=== PATIENT | female | born 1955 | race Caucasian/White ===

== ENCOUNTER 2017-10-03 14:53 | Observation (INO) | payer OTHER, SELFPAY ==
[2017-09-11 12:26] VITALS: BMI 33.3
[2017-10-02] VITALS (13 sets, daily range): BP systolic 114–170; BP diastolic 46–90; PULSE 60–95; RESP 12–18; TEMP 35.8–37.2; O2SAT 93–98; BMI 33.3
[2017-10-02] MEDS: LACTATED RINGERS 1,000 ML 42 ML IV ×2 (09:52→12:52)
--- NOTE | 2017-10-02 10:13 | PM.PREOP ---
Pre-operative Note Interval Note Pre-op Check: History & Physical Reviewed by Physician and Changes
[2017-10-02] MEDS: ACETAMINOPHEN 325 MG TABLET 975 MG PO (10:26)
[2017-10-02] MEDS: CELECOXIB 200 MG CAPSULE PO (10:26)
[2017-10-02] MEDS: CEFAZOLIN 2 GM/100 ML FROZ.PIGGY IV ×2 (10:51→18:43)
--- NOTE | 2017-10-02 11:06 | SUR.OPER ---
Supine on padded OR bed. Pillow under head, arms secured on padded armboards <90 degree abduction. Safety belt across torso. Non-operative leg secured with tape over blanket over lower leg. Operative leg secured in DeMayo/Lasha positioner. Foam padded brace at thigh of operative leg.
[2017-10-02] MEDS: BUPIVACAINE LIPOSOME 266 MG/20 ML VIAL SUBCUT (11:12)
[2017-10-02] MEDS: BUPIVACAINE 0.25% W/ EPI 50 ML VIAL INJ (11:12)
[2017-10-02] MEDS: MORPHINE 4 MG/ML INJ INJ (11:13)
--- NOTE | 2017-10-02 12:29 | DI.RAD.S_ITS ---
PROCEDURE: XR KNEE RT 1TO2V INDICATIONS: post op total knee TECHNIQUE: 2 view(s) of the knee acquired. COMPARISON: None. FINDINGS: Bones: Patient is status post knee joint arthroplasty. Hardware components are in expected positions. Visualized bony structures are intact. Soft tissues: Overlying postoperative changes are noted. IMPRESSION: Expected postsurgical change for total right knee arthroplasty. Dictated by: Aiyana Lewis MD, PhD on 10/02/2017 at 13:03 Approved by: Aiyana Lewis MD, PhD on 10/02/2017 at 13:04
--- NOTE | 2017-10-02 12:29 | PM.OP.1 ---
Operative Date/Time/Diagnoses - Date of procedure: 10/02/17 Time of procedure: 12:15 Pre-op diagnosis: Right knee osteoarthritis Post-op diagnosis: same Procedure & Clinicians Procedure: Right total knee replacement Same procedure as scheduled: Yes Indications: The patient has had progressively worsening right knee pain with radiographic changes consistent with arthritis. Non-operative management has failed and the patient has requested total knee replacement. The risks, benefits and alternatives to surgery were discussed with the patient prior to proceeding. Risks discussed included, but were not limited to, failure to relieve pain, stiffness, infection, nerve damage, deep venous thrombosis, pulmonary embolism, stroke, coma, heart attack, permanent paralysis and , as well as the potential need for eventual revision of the prosthetic. Surgeon: Branden Montero Manager Private: Gina Andrade Click Yes if Unassisted: No Anesthesia Type: General, Spinal and Local Operative Notes Findings: Severe tricompartmental osteoarthritis worst in the medial compartment. Closure Type: primary Specimen(s): none sent Implants & Drains: Implants used in this procedure were manufactured by the [employer] and included the BCS II Journey total knee replacement with a size 5 Oxinium femoral component, size 4 non porous tibial base plate, a 10 mm cross-linked BCS II tibial insert and a 32 mm oval Meka II patella. Applied: implant(s) Estimated Blood Loss (mL): 25 Blood products transfused: none Tourniquet time (min): 54 Procedure in detail: The patient was seen in the pre-operative area, where the patient identified the right knee as the operative site and this was marked with my initials. The patient received pre-operative antibiotics, and was taken to the operating room and placed on the operative table in the supine position. After satisfactory anesthesia, a realtime court reporter out was performed. The right leg was encircled with a tourniquet about the proximal thigh, and the leg was prepared from the toes to the tourniquet with ChloroPrep in the usual fashion and draped through sterile drapes. The leg was elevated and exsanguinated with Eschmark bandage and the tourniquet inflated to 250 mmHg pressure. The knee was approached through an approximately 18 cm incision centered over the patella and carried into the knee through a medial parapatellar arthrotomy. The anterior osteophytes and soft tissues were removed. The rotational landmarks of Baker's line and the transepicondylar axis were marked on the femur with electrocautery, and intramedullary guide holes for the femur and tibia were created. The distal femoral cut was made in 6 degrees of valgus using the intramedullary guide at the primary cut setting. The proximal tibial cut was then made using the intramedullary guide, taking 9 mm of bone off the less involved side. The extension gap was checked and the rotation of the femoral component confirmed with the gap balancing system. The anterior, posterior and chamfer cuts were then made. The posterior osteophytes and soft tissues were then removed. The posterior capsule was injected with part of a mixture of 50 ml 0.25% Marcaine mixed with 20 ml Exparel and 4 mg of morphine for post-operative pain control. The remainder of this mixture was injected into the capsule and subcutaneous tissues during cement curing. The tibia was prepared with the rotation set by an extra medullary guide. Trial tibial and femoral components were then placed and the intercondylar notch cut through the femoral trial. Range of motion was 0-135 degrees, with good stability throughout the range. The patella was then cut to accommodate the patellar prosthetic. There was no need for a lateral release. The trials were then removed, and the femoral hole plugged with a bone plug. The bone was prepared with pulsatile lavage, and dried with a sponge. Cement was applied and the final prosthetics placed. Excess cement was removed during and after cement curing. After confirming there was no extruded cement posteriorly, the final tibial insert was placed. The knee was copiously irrigated and the tourniquet deflated. Hemostasis was obtained. The capsule was closed with interrupted # 2 polyester suture. The subcutaneous layer was closed with 3-0 Vicryl, and the skin with a running 3-0 V-Lock suture and SteriStrips. An Aquacel Ag dressing was applied and the patient was taken to recovery having tolerated the procedure well. Complications: none Condition: stable Disposition: PACU Plan for aftercare: The patient will be maintained on a standard total knee replacement protocol with weight bearing as tolerated. The patient will receive aspirin and sequential compression devices for DVT prophylaxis. The patient will be discharged home when safe for the home environment.
[2017-10-02] MEDS: LACTATED RINGERS 1,000 ML 125 ML IV (13:53)
[2017-10-02] MEDS: HYDROCODONE/ACET 5/325 TABLET 1 TAB PO (13:55)
[2017-10-02] MEDS: hydrOXYzine pamoate 25 MG CAPSULE PO (14:39)
[2017-10-02] MEDS: IBUPROFEN 400 MG TABLET PO (15:37)
[2017-10-02] MEDS: OXYCODONE IR 5 MG TABLET PO ×2 (16:19→20:25)
--- NOTE | 2017-10-02 16:46 | PT.IPTN ---
Current Diagnoses Bilateral primary osteoarthritis of knee (10/02/17) Surgery Performed Operation Date: 10/02/17 10:15 Actual Procedures p Total Knee Arthroplasty(Right) - Branden Montero MD Physical Therapy Treatment Note M3 PT-IP Subjective Start: 10/02/17 16:42 Freq: Status: Active Protocol: Document 10/02/17 16:45 AB (Rec: 10/02/17 16:46 AB [id number]) Subjective Physical Therapy Visit Type Type Patient Refusal Notes checked on pt 2x but pt continues to refuse. Pt c/o increase pain on R knee and does not want to do therapy at this time. agreed to be seen tomorrow. PLOF information obtained from pt and post-op folder also given to pt.
[2017-10-02] MEDS: DOCUSATE 100 MG CAPSULE PO (20:20)
[2017-10-02] MEDS: ASPIRIN EC 81 MG TABLET PO (20:20)
[2017-10-02] MEDS: GABAPENTIN 100 MG CAPSULE PO (20:21)
[2017-10-02] MEDS: PRAVASTATIN 20 MG TABLET PO (20:21)
[2017-10-02] MEDS: LISINOPRIL 20 MG TABLET 40 MG PO (20:22)
--- NOTE | 2017-10-02 22:25 | PC.NURSE ---
Pt restign quietly at intervals. Med at 1620 and 2030 for discomfortw/minimal relief. Dsg to right knee CDI. Refusing SCD for the night. IV infusing as per orders w/o [employer]. CBG = 159. Stable post op course. Call light w/in reach, bed alarm on for pt safety. Continue w.plan of care
[2017-10-03] MEDS: OXYCODONE IR 5 MG TABLET PO ×8 (00:10→20:49)
[2017-10-03] MEDS: hydrOXYzine pamoate 25 MG CAPSULE PO (02:14)
[2017-10-03] MEDS: HYDROCODONE/ACET 5/325 TABLET 1 TAB PO (02:15)
[2017-10-03] MEDS: CEFAZOLIN 2 GM/100 ML FROZ.PIGGY IV (02:16)
[2017-10-03 03:34] VITALS: BP 137/75; PULSE 90; RESP 16; TEMP 37.1; O2SAT 92
[2017-10-03 05:00] VITALS: O2SAT 96
[2017-10-03] MEDS: IBUPROFEN 400 MG TABLET PO (05:33)
[2017-10-03 05:57] LABS: Hematocrit 33.2 % (36-46); Hemoglobin 11.3 g/dL (12.0-16.0)
--- NOTE | 2017-10-03 07:32 | P.PN_ITS ---
Subjective Date Patient Seen: 10/03/17 Time Patient Seen: 07:28 Interval history: The patient is seen postoperative day 1 from right total knee replacement. She reports she is having soreness but her pain has not been out of control. Exam Vital Signs (past 8 hours): Vital Signs - 8 hr 3 10/03/17 03:34 10/03/17 05:00 Temperature 98.8 F Pulse Rate 90 Respiratory Rate 16 Blood Pressure 137/75 H Pulse Oximetry 92 96 Pulse Oximetry 96 Oxygen Delivery Method Room Air Oxygen Flow Rate 0 Narrative Exam Narrative: Right knee wound is dressed. There is no drainage on the bandage. Calf is soft. Light touch and motion are intact in the right lower extremity. Objective Labs Result Diagrams: 10/03/17 05:27 Labs: Laboratory Results - last 24 hr 10/03/17 05:27 Hgb 11.3 L Hct 33.2 L Assessment & Plan Post-op Postoperative Procedures Operation Date: 10/02/17 10:15 Actual Procedures Side Surgeon p Total Knee Arthroplasty Right Branden Montero MD Postoperative day: 1 Postoperative status: doing well Postoperative plan: routine post-op care (The patient will be seen by physical therapy today. If she makes sufficient progress she will be discharged later this afternoon. If not she will be maintained in the hospital as an inpatient.) Time Spent With Patient less than 15 minutes Quality VTE Deep Vein Thrombosis/Pulmonary Embolism Present on Admission: No
[2017-10-03 08:08] VITALS: O2SAT 91
[2017-10-03] MEDS: METFORMIN HCL 500 MG TABLET PO (08:30)
[2017-10-03] MEDS: DOCUSATE 100 MG CAPSULE PO ×2 (08:31→20:46)
[2017-10-03] MEDS: AMLODIPINE 5 MG TABLET PO (08:31)
[2017-10-03] MEDS: ASPIRIN EC 81 MG TABLET PO ×2 (08:31→20:46)
[2017-10-03] MEDS: METOPROLOL ER 50 MG TABLET 100 MG PO (08:31)
[2017-10-03] MEDS: GABAPENTIN 100 MG CAPSULE PO ×2 (08:31→20:46)
[2017-10-03 12:20] VITALS: BP 161/85; PULSE 86; RESP 18; TEMP 36.9; O2SAT 95
--- NOTE | 2017-10-03 12:23 | PT.IIE ---
Current Diagnoses Bilateral primary osteoarthritis of knee (10/02/17) Surgery Performed Operation Date: 10/02/17 10:15 Actual Procedures p Total Knee Arthroplasty(Right) - Branden Montero MD Surgical History (Last Updated 09/11/17 @ 13:13 by Heather Juarez RN) History of section (Acute) Hx of meniscectomy of right knee (Acute) S/P trigger finger release (Acute) Medical History (Last Updated 09/11/17 @ 13:13 by Heather Juarez RN) Arthritis (Acute) Ganglion cyst (Acute) HTN (hypertension) (Acute) Hyperlipidemia (Acute) Lower back pain (Acute) Numbness (Acute) Pre-diabetes (Acute) Trigger finger, right ring finger (Acute) Physical Therapy Inpatient Evaluation/Re-Eval M1 PT/OT-IP Prior Functional Status Start: 10/02/17 16:42 Freq: Status: Active Protocol: Document 10/03/17 12:11 AB (Rec: 10/03/17 12:23 AB [id number]) Medical Review Prior Functional Status Medical History Reviewed Yes Mobility and Gait pt stated that she is independent with all mobilities and ambulation without AD Social History Household Members none Living Arrangements House Number of Floors (Floors) One Floor Number of Stairs To Enter/Railing? Pt will stay with her friend that has a one level house with 2 steps to enter with L rail ascending Home Environment High Toilet Walk in Shower Home Equipment Front Wheel Walker Straight Cane M2 PT-IP Current Condition Start: 10/02/17 16:42 Freq: Status: Active Protocol: Document 10/03/17 12:11 AB (Rec: 10/03/17 12:23 AB [id number]) Physical Therapy Current Condition Current Condition Evaluation Date 10/03/17 Treatment Diagnosis s/p R TKA Onset Date 10/02/17 Weight Bearing Status Weight Bearing Status Weight Bear as Tolerated M3 PT-IP Subjective Start: 10/02/17 16:42 Freq: Status: Active Protocol: Document 10/03/17 12:11 AB (Rec: 10/03/17 12:23 AB [id number]) Subjective Physical Therapy Visit Type Type Initial Evaluation Visit Start Time 09:08 Visit Stop Time 09:50 Total Visit Minutes 42 Number of BOTTOM SANDER Visits 0 Physical Therapy Visit Comments Patient Comments pt agreeable to do therapy Therapy Pain Assessment Pain When Pain Assessed At Rest Pain Present Pain Present Pain Reported Location Right Knee Intensity 7 Scale Used Numeric (1 - 10) Pain Behaviors Guarding Restlessness Pain Management Techniques Apply Cold Re-positioning Timing of Activity with Medications M4 PT-IP Mobility and Gait Start: 10/02/17 16:42 Freq: Status: Active Protocol: Document 10/03/17 12:11 AB (Rec: 10/03/17 12:23 AB [id number]) PT-Bed Mobility Assessment Supine to Sit Supine to Sit Standby Assistance PT-Transfer Assessment Sit to and From Stand Sit to and from Stand Maximum Assistance Equipment Transfer Assistive Device Gait Belt Front Wheeled Walker Orthotic/Prosthetic Devices or Brace: No Gait Assessment Gait Gait Assistance Required: Moderate Assistance Distance (Feet) (feet) 20 Able to Maintain Weight Bearing Status Yes During Gait Assistive Devices Assistive Device Gait Belt Front Wheeled Walker Orthotic/Prosthetic Devices or Brace: No Gait Deviations General Gait Pattern Antalgic Decreased Stride Length Decreased Feet Clearance Factors Limiting Gait Function Factors Limiting Gait Function Decreased Activity Tolerance Decreased Strength Limited Range of Motion Pain Poor Balance Poor Safety Awareness Comments Gait Comments pt with slight buckling towards terminal stance on R knee PT-Balance Assessment Sitting Balance and Reactions Static Sitting Balance Ability Good Dynamic Sitting Balance Ability Good Standing Balance and Reactions Static Standing Balance Ability Fair Dynamic Standing Balance Ability Poor Device Used FWW M5 PT-IP Objective Assessments Start: 10/02/17 16:42 Freq: Status: Active Protocol: Document 10/03/17 12:11 AB (Rec: 10/03/17 12:23 AB [id number]) Orientation Orientation/Cognition Level of Alertness Alert Orientation Name Age Place Situation Safety Awareness Decreased Safety Awareness Memory Description Short Term Impaired Gross Range of Motion Lower Extremity ROM Assessment Right Impaired Strength Lower Extremity Strength Assessment Right Impaired Knee 3-/5 M6 PT-IP Treatment Start: 10/02/17 16:42 Freq: Status: Active Protocol: Document 10/03/17 12:11 AB (Rec: 10/03/17 12:23 AB [id number]) Physical Therapy Treatment Education Education Provided Precautions Weight Bearing Status Post-Op Packet Safety Other Treatments Other Treatment Performed pt ambulated towards the toilet using FWW mod A and max cues for quad activation. pt required mod A for controlled descent to commode. Pt completed sit to stand from the toilet mod to max A and cues. M7 PT-IP Assessment and Plan Start: 10/02/17 16:42 Freq: Status: Active Protocol: Document 10/03/17 12:11 AB (Rec: 10/03/17 12:23 AB [id number]) PT Summary Assessment and Plan Potential Rehabilitation Potential Fair Status of Condition at Evaluation Evolving Summary Impairments Pain ROM Strength Balance Cognition Bed Mobility Transfers Gait Activity Tolerance Assessment Summary pt requires mod/max A with mobility and has slight R knee buckling during ambulation. pt plans to go to her friend's house and stated that her friend can assist her. d/c plan depending on progress and assistance pt's friend can provided for her. Will need further assessment but at this time may require SNF rehab. Goals Bed Mobility Goal Standby Assistance Transfer Goal Standby Assistance Gait Goal Standby Assistance Gait Distance 100 Other Goals up/down 2 steps with L rail ascending Days to Meet Goals 3 Frequency of Treatment Frequency Of Treatment Twice a Day Treatment Plan Physical Therapy Treatment Plan Bed Mobility Training Transfer Training Gait Training Therapeutic Exercise Balance Retraining Post Op Education Discharge Planning Hot or Cold Pack Neuromuscular Re-ed Coordination Retraining Manual Therapy Other Recommendations and Next Treatment ambulation, stair climbing Focus Recommendations To Nursing Amount of Assist Needed 1 Person Assist Discharge Recommendations PT Discharge Recommendations Home with Assistance Home Health SNF Rehab Outpatient PT Other Discharge Recommendations SNF vs home with assist/HHPT/ outpt PT : depending on level of assistance Provider Visit Care Team Role Provider Type Branden Montero MD Attending Provider Physician Specialty: Orthopedic Surgery
--- NOTE | 2017-10-03 15:58 | CM.DANOTE ---
DCP Assessment: Pt is a 62 yo female, resident of [place]. Pt initially SDC for a scheduled knee surgery w/ Dr Montero and has been changed to inpt today, 10/03/17. Pt's PCP is not listed, Insurance is [employer]. Reviewed chart. Pt is indp and active at baseline and plans to stay w/a friend for recovery period. According to PT notes; pt moving very slowly and requiring mod to max assist today. PT waiting to assess pt's progression further before determining if rec is SNF vs Home w/HH vs Home w/friend and outpt PT. Following closely and will complete full bedside assessment . LUIGI Fong
[2017-10-03 16:45] VITALS: BP 161/72; PULSE 92; RESP 18; TEMP 36.6; O2SAT 93
--- NOTE | 2017-10-03 17:29 | PT.IPTN ---
Current Diagnoses Bilateral primary osteoarthritis of knee (10/03/17) Surgery Performed Operation Date: 10/02/17 10:15 Actual Procedures p Total Knee Arthroplasty(Right) - Branden Montero MD Physical Therapy Treatment Note M2 PT-IP Current Condition Start: 10/02/17 16:42 Freq: Status: Active Protocol: Document 10/03/17 12:11 AB (Rec: 10/03/17 12:23 AB [id number]) Physical Therapy Current Condition Current Condition Evaluation Date 10/03/17 Treatment Diagnosis s/p R TKA Onset Date 10/02/17 Weight Bearing Status Weight Bearing Status Weight Bear as Tolerated M3 PT-IP Subjective Start: 10/02/17 16:42 Freq: Status: Active Protocol: Document 10/03/17 17:21 AB (Rec: 10/03/17 17:28 AB [id number]) Subjective Physical Therapy Visit Type Type Treatment Note Visit Start Time 14:30 Visit Stop Time 15:05 Total Visit Minutes 35 Number of UNIVERSITY MANAGER Visits 0 Physical Therapy Visit Comments Patient Comments pt agreeable to do therapy Therapy Pain Assessment Pain When Pain Assessed At Rest Pain Present Pain Present Pain Reported Location Right Knee Intensity 5 Scale Used Numeric (1 - 10) Pain Management Techniques Apply Cold Timing of Activity with Medications M4 PT-IP Mobility and Gait Start: 10/02/17 16:42 Freq: Status: Active Protocol: Document 10/03/17 17:21 AB (Rec: 10/03/17 17:28 AB [id number]) PT-Bed Mobility Assessment Supine to Sit Supine to Sit Minimal Assistance PT-Transfer Assessment Sit to and From Stand Sit to and from Stand Minimal Assistance Moderate Assistance Equipment Transfer Assistive Device Gait Belt Front Wheeled Walker Gait Assessment Gait Gait Assistance Required: Minimum Assistance Distance (Feet) (feet) 35 Assistive Devices Assistive Device Gait Belt Front Wheeled Walker Orthotic/Prosthetic Devices or Brace: No Gait Deviations General Gait Pattern Antalgic Decreased Stride Length Decreased Feet Clearance Factors Limiting Gait Function Factors Limiting Gait Function Decreased Activity Tolerance Decreased Strength Limited Range of Motion Pain Poor Balance Poor Safety Awareness Comments Gait Comments pt continues to present with slight R knee buckling during ambulation Stair Climbing Assessment Evaluation Level of Assist On Stairs Maximal Assistance 1 Person Assistance Devices Stair Climbing Assistive Devices Left Railing Right Railing Technique/Endurance Stair Climbing Direction Ascend and Descend Stair Climbing Technique Step to Step Number of Steps Climbed 3 Query Text: Comments Stair Climbing Comments pt requiring max A with up/ down steps with max cue sot activate R quads. pt also seems drowsy affecting following instructions. M5 PT-IP Objective Assessments Start: 10/02/17 16:42 Freq: Status: Active Protocol: Document 10/03/17 12:11 AB (Rec: 10/03/17 12:23 AB [id number]) Orientation Orientation/Cognition Level of Alertness Alert Orientation Name Age Place Situation Safety Awareness Decreased Safety Awareness Memory Description Short Term Impaired Gross Range of Motion Lower Extremity ROM Assessment Right Impaired Strength Lower Extremity Strength Assessment Right Impaired Knee 3-/5 M6 PT-IP Treatment Start: 10/02/17 16:42 Freq: Status: Active Protocol: Document 10/03/17 17:28 AB (Rec: 10/03/17 17:29 AB [id number]) Physical Therapy Treatment Exercises Exercises Quad Sets Other Treatments Other Treatment Performed pt completed R quads sets and instructed to do exercises independently to strengthen R quads. M7 PT-IP Assessment and Plan Start: 10/02/17 16:42 Freq: Status: Active Protocol: Document 10/03/17 17:21 AB (Rec: 10/03/17 17:28 AB [id number]) PT Summary Assessment and Plan Potential Rehabilitation Potential Fair Summary Impairments Pain ROM Strength Balance Sensation Cognition Bed Mobility Transfers Gait Activity Tolerance Progress Towards Goals Slow Progress due to Activity Tolerance Assessment Summary pt continues to require mod for transfer and max A with stair climbing. d/c plan depending if pt's friend will be able to assist pt safely. informed pt that caregiver training needs to be conducted but also informed regarding SNF possibility. pt has 3 steps to enter the house with one rail. At this time, pt needs 2 rails and requires max A for safety. Goals Bed Mobility Goal Standby Assistance Transfer Goal Standby Assistance Gait Goal Standby Assistance Gait Distance 100 Other Goals up/down 2 steps with L rail ascending Days to Meet Goals 3 Frequency of Treatment Frequency Of Treatment Twice a Day Treatment Plan Physical Therapy Treatment Plan Bed Mobility Training Transfer Training Gait Training Therapeutic Exercise Balance Retraining Post Op Education Discharge Planning Hot or Cold Pack Neuromuscular Re-ed Coordination Retraining Manual Therapy Other Recommendations and Next Treatment ambulation, stair climbing Focus Recommendations To Nursing Amount of Assist Needed 1 Person Assist Discharge Recommendations PT Discharge Recommendations Home with Assistance Home Health SNF Rehab Outpatient PT Other Discharge Recommendations SNF vs home with assist/HHPT/ outpt PT : depending on level of assistance
[2017-10-03 20:02] VITALS: BP 157/79; PULSE 98; RESP 20; TEMP 37.3; O2SAT 93
[2017-10-03] MEDS: PRAVASTATIN 20 MG TABLET PO (20:47)
[2017-10-03] MEDS: LISINOPRIL 20 MG TABLET 40 MG PO (20:47)
[2017-10-04] VITALS (8 sets, daily range): BP systolic 127–164; BP diastolic 67–99; PULSE 88–116; RESP 13–20; TEMP 36.3–37.4; O2SAT 93–98
[2017-10-04] MEDS: IBUPROFEN 400 MG TABLET PO ×3 (00:08→21:12)
--- NOTE | 2017-10-04 07:16 | P.PN_ITS ---
Subjective Date Patient Seen: 10/04/17 Time Patient Seen: 07:14 Interval history: The patient is sleeping well. Pain control is adequate. She reports a concern of some erythema on the posterior aspect of her leg. Exam Vital Signs (past 8 hours): Vital Signs - 8 hr 3 10/04/17 00:15 10/04/17 05:36 Temperature 99.3 F 98.3 F Pulse Rate 104 H 116 H Respiratory Rate 20 18 Blood Pressure 160/99 H 164/92 H Pulse Oximetry 93 93 Pulse Oximetry 93 Oxygen Delivery Method Room Air Oxygen Flow Rate 0 Narrative Exam Narrative: Right knee wound is dressed. There is minimal drainage on the bandage. There is no erythema surrounding the wound. There is some mild dependent erythema on the back portion of the leg from lying in bed. Calf is soft. Light touch and motion are intact in the right lower extremity. Objective Labs Result Diagrams: 10/03/17 05:27 Assessment & Plan Post-op Postoperative Procedures Operation Date: 10/02/17 10:15 Actual Procedures Side Surgeon p Total Knee Arthroplasty Right Branden Montero MD Postoperative day: 2 Postoperative status: doing well (General the patient is doing well but making slow progress with physical therapy. She requires maximum assist to go up a short flight of stairs. It is likely she will require an additional day in the hospital to be safe to go home.) and anemia (The patient has a mild post hemorrhagic anemia that does not require transfusion.) Postoperative plan: routine post-op care (We will continue physical therapy today in anticipation of likely discharge tomorrow.) Time Spent With Patient less than 15 minutes Quality VTE Deep Vein Thrombosis/Pulmonary Embolism Present on Admission: No
[2017-10-04] MEDS: GABAPENTIN 100 MG CAPSULE PO ×2 (08:53→20:40)
[2017-10-04] MEDS: ASPIRIN EC 81 MG TABLET PO ×2 (08:53→20:40)
[2017-10-04] MEDS: METFORMIN HCL 500 MG TABLET PO (08:53)
[2017-10-04] MEDS: DOCUSATE 100 MG CAPSULE PO ×2 (08:53→20:40)
[2017-10-04] MEDS: METOPROLOL ER 50 MG TABLET 100 MG PO (08:53)
[2017-10-04] MEDS: AMLODIPINE 5 MG TABLET PO (08:53)
--- NOTE | 2017-10-04 09:40 | PT.IPTN ---
Current Diagnoses Bilateral primary osteoarthritis of knee (10/03/17) Surgery Performed Operation Date: 10/02/17 10:15 Actual Procedures p Total Knee Arthroplasty(Right) - Branden Montero MD Physical Therapy Treatment Note M2 PT-IP Current Condition Start: 10/02/17 16:42 Freq: Status: Active Protocol: Document 10/03/17 12:11 AB (Rec: 10/03/17 12:23 AB [id number]) Physical Therapy Current Condition Current Condition Evaluation Date 10/03/17 Treatment Diagnosis s/p R TKA Onset Date 10/02/17 Weight Bearing Status Weight Bearing Status Weight Bear as Tolerated M3 PT-IP Subjective Start: 10/02/17 16:42 Freq: Status: Active Protocol: Document 10/04/17 09:40 GGD (Rec: 10/04/17 10:28 GGD [id number]) Subjective Physical Therapy Visit Type Type Treatment Note Visit Start Time 09:05 Visit Stop Time 09:40 Total Visit Minutes 35 Number of GEOGRAPHY INSTRUCTOR Visits 1 Physical Therapy Visit Comments Patient Comments Pt states she feeling better. Therapy Pain Assessment Pain When Pain Assessed At Rest Pain Present Pain Present Pain Reported Location Right Knee Intensity 3 Scale Used Numeric (1 - 10) Pain Management Techniques Apply Cold Timing of Activity with Medications M4 PT-IP Mobility and Gait Start: 10/02/17 16:42 Freq: Status: Active Protocol: Document 10/04/17 09:40 GGD (Rec: 10/04/17 10:28 GGD [id number]) PT-Transfer Assessment Sit to and From Stand Sit to and from Stand Contact Guard Assistance 1 Person Assistance Use of Upper Extremities Equipment Transfer Assistive Device Gait Belt Front Wheeled Walker Transfers Transfer Destination Chair Gait Assessment Gait Gait Assistance Required: Contact Guard Assist 1 Person Assist Distance (Feet) (feet) 35 Assistive Devices Assistive Device Gait Belt Front Wheeled Walker Gait Deviations General Gait Pattern Antalgic Decreased Stride Length Decreased Feet Clearance Flexed Trunk Factors Limiting Gait Function Factors Limiting Gait Function Decreased Activity Tolerance Decreased Strength Difficulty Following Directions Limited Range of Motion Pain Poor Safety Awareness Comments Gait Comments Pt need max cues for posture and use of FWW. Stair Climbing Assessment Evaluation Level of Assist On Stairs Contact Guard Assistance 1 Person Assistance Devices Stair Climbing Assistive Devices Straight Cane Left Railing Technique/Endurance Stair Climbing Direction Ascend and Descend Stair Climbing Technique Step to Step Number of Steps Climbed 3 Query Text: Stair Climbing Set # Repetitions (reps) 1 Comments Stair Climbing Comments Pt need close CGA and cues for use of SPC M7 PT-IP Assessment and Plan Start: 10/02/17 16:42 Freq: Status: Active Protocol: Document 10/04/17 09:40 GGD (Rec: 10/04/17 10:28 GGD [id number]) PT Summary Assessment and Plan Summary Assessment Summary Pt improved with stairs. She need cues for safe gait with FWW. Frequency of Treatment Frequency Of Treatment Twice a Day Treatment Plan Other Recommendations and Next Treatment ambulation, stair climbing, Focus bed mobility. Recommendations To Nursing Amount of Assist Needed 1 Person Assist Discharge Recommendations PT Discharge Recommendations Home with Assistance Outpatient PT
--- NOTE | 2017-10-04 10:19 | CM.DPC ---
DCP Cont: According to MATILDE Coyle; pt doing better this morning and will likely be okay to DC w/friend tomorrow w/outpt PT. Met w/pt, explained SW role. Pt still plans to DC w/friend to assist and has no concern about this, she expects DC to be tomorrow, Sunday. Pt plans to f/u w/outpt PT and will have her friend transport to these appts. LUIGI Fong
[2017-10-04] MEDS: OXYCODONE IR 5 MG TABLET PO (13:37)
--- NOTE | 2017-10-04 14:26 | PT.IPTN ---
Current Diagnoses Bilateral primary osteoarthritis of knee (10/03/17) Surgery Performed Operation Date: 10/02/17 10:15 Actual Procedures p Total Knee Arthroplasty(Right) - Branden Montero MD Physical Therapy Treatment Note M2 PT-IP Current Condition Start: 10/02/17 16:42 Freq: Status: Active Protocol: Document 10/03/17 12:11 AB (Rec: 10/03/17 12:23 AB [id number]) Physical Therapy Current Condition Current Condition Evaluation Date 10/03/17 Treatment Diagnosis s/p R TKA Onset Date 10/02/17 Weight Bearing Status Weight Bearing Status Weight Bear as Tolerated M3 PT-IP Subjective Start: 10/02/17 16:42 Freq: Status: Active Protocol: Document 10/04/17 14:23 GGD (Rec: 10/04/17 14:26 GGD [id number]) Subjective Physical Therapy Visit Type Type Treatment Note Visit Start Time 13:50 Visit Stop Time 14:20 Total Visit Minutes 30 Number of FRAME COVERER Visits 2 Physical Therapy Visit Comments Patient Comments Pt willing to work with PT. Therapy Pain Assessment Pain When Pain Assessed At Rest Pain Present Pain Present Pain Reported M4 PT-IP Mobility and Gait Start: 10/02/17 16:42 Freq: Status: Active Protocol: Document 10/04/17 14:23 GGD (Rec: 10/04/17 14:26 GGD [id number]) PT-Transfer Assessment Sit to and From Stand Sit to and from Stand Contact Guard Assistance 1 Person Assistance Use of Upper Extremities Equipment Transfer Assistive Device Gait Belt Front Wheeled Walker Transfers Transfer Destination Chair Toilet Gait Assessment Gait Gait Assistance Required: Contact Guard Assist 1 Person Assist Distance (Feet) (feet) 50 Assistive Devices Assistive Device Gait Belt Front Wheeled Walker Gait Deviations General Gait Pattern Antalgic Decreased Stride Length Decreased Feet Clearance Flexed Trunk Factors Limiting Gait Function Factors Limiting Gait Function Decreased Activity Tolerance Decreased Strength Difficulty Following Directions Limited Range of Motion Pain Poor Safety Awareness Comments Gait Comments Pt need less cues to stay with in the FWW, but cues for FWW management. Document 10/04/17 14:23 GGD (Rec: 10/04/17 14:26 GGD [id number]) Physical Therapy Treatment Exercises Exercises Ankle Pumps Quad Sets Heel Slides Seated Knee Flexion/Extension M7 PT-IP Assessment and Plan Start: 10/02/17 16:42 Freq: Status: Active Protocol: Document 10/04/17 14:23 GGD (Rec: 10/04/17 14:26 GGD [id number]) PT Summary Assessment and Plan Summary Assessment Summary Pt needed cues for FWW management with gait. She improved with sit to stand. Frequency of Treatment Frequency Of Treatment Twice a Day Treatment Plan Other Recommendations and Next Treatment ambulation, stair climbing, Focus bed mobility. Recommendations To Nursing Amount of Assist Needed 1 Person Assist Discharge Recommendations PT Discharge Recommendations Home with Assistance Outpatient PT
[2017-10-04] MEDS: LISINOPRIL 20 MG TABLET 40 MG PO (20:40)
[2017-10-04] MEDS: PRAVASTATIN 20 MG TABLET PO (20:40)
[2017-10-05 01:19] VITALS: BP 140/74; PULSE 112; RESP 20; TEMP 36.9; O2SAT 95
[2017-10-05 01:27] VITALS: O2SAT 95
--- NOTE | 2017-10-05 01:38 | PC.NURSE ---
Alert and oriented. Breath sounds CTA with RA sat of 95%. HRR but tachy at 112 and BP intermittently elevated with current reading of 140/74. Denies nausea. BT present and is passing flatus but has not had a BM since 10/01; has been receiving Colace and was given prune juice on previous shift. Denies dysuria, frequency, urgency or incontinence. Able to move self in bed. Aquacel dressing to right knee intact with 2 areas of sanguinous drainage noted and outlined; has jc wrap over Aquacel dressing. CMS intact bilaterally. Refusing SCD's despite information as to purpose so reminded to ankle wave when awake; verbalizes understanding. Fall risk score is high and bed alarm is activated. Expecting to discharge to friend's home today.
[2017-10-05] MEDS: IBUPROFEN 400 MG TABLET PO ×2 (05:14→11:27)
[2017-10-05 08:00] VITALS: BP 129/73; PULSE 108; RESP 16; TEMP 36.9; O2SAT 92
[2017-10-05] MEDS: ASPIRIN EC 81 MG TABLET PO (08:19)
[2017-10-05] MEDS: METFORMIN HCL 500 MG TABLET PO (08:19)
[2017-10-05] MEDS: AMLODIPINE 5 MG TABLET PO (08:19)
[2017-10-05] MEDS: GABAPENTIN 100 MG CAPSULE PO (08:20)
[2017-10-05] MEDS: METOPROLOL ER 50 MG TABLET 100 MG PO (08:20)
[2017-10-05] MEDS: DOCUSATE 100 MG CAPSULE PO (08:20)
[2017-10-05 08:26] VITALS: O2SAT 96
--- NOTE | 2017-10-05 09:38 | PM.DS.1 ---
History of Present Illness Date Patient Seen: 10/05/17 Time Patient Seen: 09:38 Chief complaint: *OPB* total knee arthroplasty [id number] Narrative: Patient is a 62-year-old female with history of right knee pain she failed conservative measures elected to proceed with right total knee replacement with Dr. Montero. Discharge Providers Date of admission: 10/03/17 14:53 Consults: 10/02/17 13:30 Consult to Discharge Planning Routine Comment: Consult to Physical Therapy Evaluate & Treat Comment: Physician Instructions: postop TKA protocol Discharge provider: Shannon Armstrong PA-C Summary Discharge Diagnosis: Right knee osteoarthritis Hospital Course: Patient was admitted taken to the OR where she had a right total knee replacement with Dr. Montero. She recovered well and was transferred to the floor for further care. First couple days postop she was slow to ambulate. By postop day 3 patient was mobilizing well, pain under control, eating and drinking well and was ready to be discharged home. Status at Discharge Cognitive/behavioral status at discharge: Alert and oriented x3 Functional status at discharge: uses cane/walker Overall status at discharge: patient is progressing back to baseline Time Spent with Patient Less than 30 minutes Exam Vital Signs (past 8 hours): Vital Signs - 8 hr 10/05/17 08:00 10/05/17 08:26 Temperature 98.4 F Pulse Rate 108 H Respiratory Rate 16 Blood Pressure 129/73 H Pulse Oximetry 92 96 Pulse Oximetry 96 Oxygen Delivery Method Room Air Oxygen Flow Rate 0 Narrative Exam Narrative: Patient sitting in chair. Right knee dressing with a couple spots of dried blood. Not much swelling in the right knee. Bilateral calves soft and nontender. 5/5 right ankle strength. Neurovascular status intact. Objective Labs Result Diagrams: 10/03/17 05:27 Discharge Plan Discharge Plan Patient Disposition: Home, Self-Care Discharge comment: Take aspirin 81 mg twice a day for a total 6 weeks. Take ibuprofen 400 mg 3 times a day for pain. Take Tylenol as needed for pain but not to exceed 4000 mg. Oxycodone 5 mg prescription already given before surgery as needed for severe pain. Discharge Med Rec/Prescriptions Prescriptions: New aspirin 81 mg Tablet,Delayed Release (Dr/Ec) 81 mg PO BID Qty: 0 RF: 0 Continue metformin 500 mg Tablet 500 mg PO QAM RF: 0 ibuprofen 200 mg Capsule 400 mg PO TID PRN (Reason: pain) RF: 0 metoprolol succinate 100 mg Tablet Extended Release 24 Hr 100 mg PO QAM RF: 0 pravastatin 20 mg Tablet 20 mg PO QAM RF: 0 gabapentin 100 mg Capsule 100 mg PO BID RF: 0 lisinopril 40 mg Tablet 40 mg PO BEDTIME RF: 0 ibuprofen-diphenhydramine cit [Advil PM] 200-38 mg Tablet 2 cap PO BEDTIME PRN (Reason: Sleep) RF: 0 amlodipine 5 mg Tablet 5 mg PO DAILY RF: 0 Tylenol PM Extra Strength 500 mg 1,000 mg PO PRN PRN (Reason: Pain (Scale Score 1-3)) RF: 0 Follow up/Referrals: Branden Montero MD [Physician] - (Follow-up appointment on 10/09/2017 at 2:00 p.m. at the [facility]. Any issues or concerns contact the office.) Provider Discharge Instructions Diet: Carb-consistent/Diabetic Activity: Continue knee range of motion exercises. Start physical therapy next week. Cold/Heat Therapy: Apply ice as needed on right knee for pain and swelling Wound Care Report to your healthcare provider any signs of infection, such as:: chills, fever, increased pain and unusual drainage Dressing: Leave dressing on. May shower. Visit Report/Discharge Packet Instructions: DI for Knee Replacement Discharge Data Attending Provider: Branden Montero Admit Date/Time: 10/03/17 14:53 Discharge Interventions Interventions: Discharge assessment Last Done: 10/02/17 15:00 Quality VTE Deep Vein Thrombosis/Pulmonary Embolism Present on Admission: No
--- NOTE | 2017-10-05 09:58 | PC.NURSE ---
Addendum entered by Clotilde Kimbrough R.N. 10/05/17 13:07: dc - reviewed dc instructions, pt was provided with medications/scripts prior to discharge, given ice pack knee, belongings gathered, including cell phone and physical geographer, clothing, bag, tsf to wc and escorted by float RN to car. Original Note: Addendum entered by Clotilde Kimbrough R.N. 10/05/17 11:32: PAIN - given 400mg ibuprofen prior to discharge, discussed limitations tylenol as pt has extra strength 500mg at home. Original Note: Addendum entered by Clotilde Kimbrough R.N. 10/05/17 10:54: integ - after shower, removed old aquacell dsg, no active bleeding, old serosang along incision, gently cleaned w4x4 dampened w/normal saline around the incision old drainage, not over incision itself and placed new aquacell. Original Note: AM NOTE - alert, states r knee pain 2 on scale 0/10, adequate pain management with earlier ibuprofen, aquacell dsg with marked old serosang, no leakage, discussed constipation and medications, given prune juice 7 up this am, ra 96%, hr 90, 1+ pedal edema, up to chair after assist w/fww to br, ice pack to r knee. Shannon in later am and removed the jc wrap, new order rec'd to change aquacell after ambul with phys therapy.
--- NOTE | 2017-10-05 10:15 | PT.IPTN ---
Current Diagnoses Bilateral primary osteoarthritis of knee (10/03/17) Surgery Performed Operation Date: 10/02/17 10:15 Actual Procedures p Total Knee Arthroplasty(Right) - Branden Montero MD Physical Therapy Treatment Note M2 PT-IP Current Condition Start: 10/02/17 16:42 Freq: Status: Active Protocol: Document 10/03/17 12:11 AB (Rec: 10/03/17 12:23 AB [id number]) Physical Therapy Current Condition Current Condition Evaluation Date 10/03/17 Treatment Diagnosis s/p R TKA Onset Date 10/02/17 Weight Bearing Status Weight Bearing Status Weight Bear as Tolerated M3 PT-IP Subjective Start: 10/02/17 16:42 Freq: Status: Active Protocol: Document 10/05/17 10:15 GGD (Rec: 10/05/17 11:54 GGD [id number]) Subjective Physical Therapy Visit Type Type Treatment Note Visit Start Time 09:50 Visit Stop Time 10:15 Total Visit Minutes 25 Number of PAIL BAILER Visits 3 Physical Therapy Visit Comments Patient Comments Pt feels ready to go home and would like to do stairs again. Therapy Pain Assessment Pain When Pain Assessed At Rest Pain Present Pain Present Pain Reported Location Right Knee Intensity 3 Scale Used Numeric (1 - 10) Pain Management Techniques Apply Cold Timing of Activity with Medications M4 PT-IP Mobility and Gait Start: 10/02/17 16:42 Freq: Status: Active Protocol: Document 10/05/17 10:15 GGD (Rec: 10/05/17 11:54 GGD [id number]) PT-Transfer Assessment Sit to and From Stand Sit to and from Stand Contact Guard Assistance 1 Person Assistance Use of Upper Extremities Equipment Transfer Assistive Device Gait Belt Front Wheeled Walker Transfers Transfer Destination Chair Wheelchair Gait Assessment Gait Gait Assistance Required: Contact Guard Assist 1 Person Assist Distance (Feet) (feet) 50 Assistive Devices Assistive Device Gait Belt Front Wheeled Walker Gait Deviations General Gait Pattern Antalgic Decreased Stride Length Decreased Feet Clearance Flexed Trunk Factors Limiting Gait Function Factors Limiting Gait Function Decreased Activity Tolerance Decreased Strength Difficulty Following Directions Limited Range of Motion Pain Poor Safety Awareness Comments Gait Comments Pt need less cues for FWW management. Stair Climbing Assessment Evaluation Level of Assist On Stairs Contact Guard Assistance 1 Person Assistance Devices Stair Climbing Assistive Devices Left Railing Technique/Endurance Stair Climbing Direction Ascend and Descend Stair Climbing Technique Step to Step Number of Steps Climbed 3 Query Text: Stair Climbing Set # Repetitions (reps) 1 M5 PT-IP Objective Assessments Start: 10/02/17 16:42 Freq: Status: Active Protocol: Document 10/03/17 12:11 AB (Rec: 10/03/17 12:23 AB [id number]) Orientation Orientation/Cognition Level of Alertness Alert Orientation Name Age Place Situation Safety Awareness Decreased Safety Awareness Memory Description Short Term Impaired Gross Range of Motion Lower Extremity ROM Assessment Right Impaired Strength Lower Extremity Strength Assessment Right Impaired Knee 3-/5 M6 PT-IP Treatment Start: 10/02/17 16:42 Freq: Status: Active Protocol: Document 10/05/17 10:15 GGD (Rec: 10/05/17 11:54 GGD [id number]) Physical Therapy Treatment Exercises Exercises Ankle Pumps Quad Sets Heel Slides Seated Knee Flexion/Extension M7 PT-IP Assessment and Plan Start: 10/02/17 16:42 Freq: Status: Active Protocol: Document 10/05/17 10:15 GGD (Rec: 10/05/17 11:54 GGD [id number]) PT Summary Assessment and Plan Summary Assessment Summary Pt improved with gait and stairs. She needed less cues and less assistance. Frequency of Treatment Frequency Of Treatment Twice a Day Treatment Plan Other Recommendations and Next Treatment ambulation, stair climbing, Focus bed mobility. Recommendations To Nursing Amount of Assist Needed 1 Person Assist Discharge Recommendations PT Discharge Recommendations Home with Assistance Outpatient PT
[2017-10-05 12:00] VITALS: BP 134/68; PULSE 93; RESP 16; TEMP 36.7; O2SAT 95
--- NOTE | 2017-10-05 12:08 | CM.DPNOTE ---
DC NOte: Pt has been DC by Ortho PA and PT feels pt okay to safely DC home w/assist from her friend and outpt PT. Pt agrees, she denies needs, friend to transport. DANILO
== END 2017-10-05 12:40 | disposition home or self-care (01) | DRG 470 ==
LOC: OR 16:19 → AC 16:25
PROVIDERS: Admitting Provider Orthopaedic Surgery; Visit Provider Orthopaedic Surgery
PROC: 0SRC0JZ Replacement of Right Knee Joint with Synthetic Substitute, Open Approach (ICD-10-PCS; CPT 27447; principal; 2017-10-02 10:15)
DX: M17.11 Unilateral primary osteoarthritis, right knee (principal); I10 Essential (primary) hypertension; E11.9 Type 2 diabetes mellitus without complications; Z79.84 Long term (current) use of oral hypoglycemic drugs; E78.5 Hyperlipidemia, unspecified
CPT/HCPCS: 27447; 36415; 73560; 82962; 85014; 85018; 97116; 97162; 97530; C1776; G0378; C9290; J0690; J2250; J2270; J2405; J2704; J2765; J3010

== ENCOUNTER → 2023-11-14 12:10 | Outpatient (CLI) | payer MEDICARE, SELFPAY ==
[2017-10-02 13:38] VITALS: BMI 33.3
--- NOTE | 2023-11-14 12:11 | DI.MRI.S_ITS ---
PROCEDURE: MR LUMBAR SPINE WO CON INDICATIONS: LUMBAR RADICULOPATHY,LT HIP FLEXOR WEAKNESS TECHNIQUE: Noncontrast sagittal T1 spin echo and T2 fast echo, sagittal STIR, and T2 fast spin echo through the lumbar spine. In cases with scoliosis, additional coronal T2 fast spin echo may be performed. COMPARISON: None. FINDINGS: Image quality: Excellent. Alignment and Curvature: Levoconvex scoliosis of the lumbar spine. Grade 1 anterolisthesis of L4 on L5. Grade 1 retrolisthesis of T12 on L1, L1 on L2 and L2 on L3. Bone Marrow: Marrow is of normal overall signal. No acute vertebral body compression fractures. Spinal Cord: Conus medullaris terminates at the L1 level. Visualized cord demonstrates normal signal and size. Paraspinous Soft Tissues: Fatty atrophy of the paraspinal muscles.. Intervertebral discs: Multilevel disc desiccation and disc height loss. T12-L1: No spinal canal stenosis or foraminal stenosis. There is bilateral facet arthropathy and ligamentum flavum hypertrophy. L1-L2: Dorsal disc bulge mildly flattens the ventral thecal sac. Severe right foraminal stenosis and moderate to severe left foraminal stenosis. There is bilateral facet arthropathy and ligamentum flavum hypertrophy. L2-L3: Dorsal disc bulge and ligamentum flavum hypertrophy result in mild narrowing of a spinal canal. Severe right foraminal stenosis and moderate to severe left foraminal stenosis. There is bilateral facet arthropathy. L3-L4: Dorsal disc bulge and ligamentum flavum hypertrophy result in moderate to severe spinal canal stenosis. Moderate to severe left foraminal stenosis and severe right foraminal stenosis. There is bilateral facet arthropathy. L4-L5: Dorsal disc bulge with superimposed left paracentral disc protrusion and ligamentum flavum hypertrophy result in severe spinal canal stenosis. Moderate to severe right foraminal stenosis and severe left foraminal stenosis. There is bilateral facet arthropathy. L5-S1: Dorsal disc bulge and ligamentum flavum hypertrophy result in severe spinal canal stenosis. Moderate to severe left foraminal stenosis. Mild narrowing of the right foramen. There is bilateral facet arthropathy. IMPRESSION: 1. Multilevel degenerative disc disease throughout lumbar spine as described above. The worse levels are at L4-L5 and at L5-S1. At the L4-L5 level, there is severe spinal canal stenosis, severe left foraminal stenosis and moderate to severe right foraminal stenosis. At the L5-S1 level, there is severe spinal canal stenosis, moderate to severe left foraminal stenosis. 2. Levoconvex scoliosis of the lumbar spine. 3. Grade 1 anterolisthesis of L4 on L5. Grade 1 retrolisthesis of T12 on L1, L1 on L2 and L2 on L3. Dictated by: Shemar Rushing M.D. on 11/14/2023 at 16:18 Approved by: Shemar Rushing M.D. on 11/14/2023 at 16:35
== END ==
PROVIDERS: Referring Provider Orthopaedic Surgery Foot and Ankle Surgery; Visit Provider Orthopaedic Surgery Foot and Ankle Surgery
DX: M51.16 Intervertebral disc disorders with radiculopathy, lumbar region (principal); M51.17 Intervertebral disc disorders with radiculopathy, lumbosacral region; M47.26 Other spondylosis with radiculopathy, lumbar region; M47.27 Other spondylosis with radiculopathy, lumbosacral region; M48.061 Spinal stenosis, lumbar region without neurogenic claudication; M48.07 Spinal stenosis, lumbosacral region; M43.14 Spondylolisthesis, thoracic region; M43.16 Spondylolisthesis, lumbar region; M41.9 Scoliosis, unspecified
CPT/HCPCS: 72148